=== PATIENT | female | born 1960 | race Caucasian/White ===

== ENCOUNTER 2023-11-24 14:45 | Outpatient (AMB) | payer OTHER, SELFPAY ==
--- NOTE | 2023-11-24 15:24 | MHC.OFFVIS ---
Intake Vital Signs 11/24/23 15:28 Height 5 ft 1 in Weight 166 lb 4 oz BMI 31.4 BP 110/78 Blood Pressure Location Lt brachial Position Sitting Pulse 53 Pulse Source Pulse Oximeter Pulse Oximetry (%) 98 Oxygen Delivery Method Room Air Intake Visit Reasons: ENP-Memory concerns-Confirmed Intake Note: Patient presents forgetting conversations, phone numbers, instructions, names of people, what to do, where she is going Allergies cephalexin [From Keflex] Allergy (Intermediate, Verified 11/24/23 15:26) Hives amoxicillin Allergy (Mild, Verified 11/24/23 15:26) Pruritus Prednisone Allergy (Severe, Uncoded 11/22/23 09:41) Vomiting HPI HPI Comments History of Present Illness Details 63 y/o female patient presents for new in-person visit for memory loss. Pt reports she forgets a lot, it started many years ago and has been progressed. She forgets conversation she had the night before with her family, and forgets what she tried to do. She had many episodes of forgetting to turn off the stove, and stopped cooking. Pt has [employer], and gets help for house work and cooking. She frequently forgets to bring her dog in after walking. She lives alone, and her friend and daughter visit her regularly. She can takes care of bills, uses note and calendar, not missing bills. She lives alone but her friend visit her frequently. Pt's daughter comes and help her regularly. 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 She drives, but can get confused the directions. She has hx of sleep apnea, and tried different CPAP mask but not tolerated, she stopped using it. She was over 300 lb, and had gastric bypass, and lost about 140 lb. Pt has HTN and T2 DM. She has hx of brain aneurysm. She does not have any social or cognitive activities. She likes baking , but usually just watching TV all day. [facility] Surgical History History of endoscopy History of bunionectomy History of hernia repair History of gastric bypass Status post hammertoe correction Status post breast reduction S/P panniculectomy History of neck surgery History of hysterectomy History of foot surgery H/O colonoscopy Previous back surgery Family History (Updated 11/24/23 @ 15:35 by Virginia Crawley CMA) Maternal Aunt Cancer Father Aortic aneurysm Mother Asthma Diabetes Heart disease Brother Cancer of lung Social History Alcohol intake: never Patient Tobacco Use Status: Never used Tobacco Review of Systems Const All systems reviewed & are unremarkable except as noted in HPI and below Physical Exam Vital Signs: Last Vital Signs Pulse 53 11/24/23 15:28 BP 110/78 11/24/23 15:28 Pulse Ox 98 11/24/23 15:28 Oxygen Delivery Method Room Air 11/24/23 15:28 BMI result Body Mass Index 31.4 Const General: cooperative Nutritional Appearance: obese Orientation/consciousness: patient oriented x3 Resp Effort & Inspection: normal respiratory effort and able to speak in complete sentences Neuro General: patient oriented x3 and gait normal Cranial nerves: Yes CN's II-XII intact bilaterally Cognition (Neuro): normal cognition Motor exam (neuro): 5/5 motor strength present throughout Psych Appearance: grossly normal Mental Status: mental status grossly normal Speech and movement: Normal speech and movement present Affect: normal affect Attitude: cooperative Orientation What is the (year) (season) (date) (day) (month)?: year, season, date, day and month Where are we (state) (county) (town or city) (hospital) (floor)?: state, county, town or city, hospital/clinic and floor Registration Name of 3 unrelated objects clearly and slowly, then ask patient to repeat all 3 of them. (1st repeat determines score. Make sure they can repeat all three): object 1, object 2 and object 3 Attention & Calculation (CHOOSE ONE) Spell WORLD backwards (DLROW): 5 letters Recall Ask patient to repeat the 3 items from question #3.: object 1, object 2 and object 3 Language Show patient a wristwatch & ask what it is. Repeat for pencil.: watch and pencil Ask the patient to repeat the phrase 'No ifs, ands, or buts' after you.: incorrect Ask the patient to 'take a piece of paper with their right hand' 'fold paper in half' 'place paper on floor': take paper in right hand, fold paper in half and place paper on floor Print the sentence 'CLOSE YOUR EYES' on a piece. If patient actually closes eyes then score.: followed written direction Give patient a blank piece of paper & ask to write a sentence. Score if it contains a noun & verb.: sentence contains subject and verb Ask patient to copy figure of intersecting pentagons exactly. Score if all 10 angles & 2 intersects are included.: all 10 angles present & 2 are intersected Score Score: 29 Assessment & Plan Assessment & Plan (1) Memory loss: Code(s): R41.3 - Other amnesia Plan Pt did well for MMSE today, . Will check labs for reversible causes of memory loss. Pt declined repeat sleep study at this time. Will refer for neuropsychiatry for evaluation. Advised patient to increase daily physical, cognitive and social activities. Orders: Orders Vitamin B12 and Folate 11/24/23 R41.3 - Other amnesia Vitamin D 25-OH (D2 and D3) 11/24/23 R41.3 - Other amnesia TSH reflex Free T4 11/24/23 R41.3 - Other amnesia Comprehensive Met. Panel 11/24/23 R41.3 - Other amnesia Complete Blood Count Auto Diff 11/24/23 R41.3 - Other amnesia Referrals Neuropsychiatry Referral R41.3 - Other amnesia Coding Level of Care Code New Pt Level 4 (47017) Diagnoses Memory loss R41.3
[2023-11-24 15:28] VITALS: BP 110/78; PULSE 53; O2SAT 98; BMI 31.4
== END 2023-11-24 15:59 | disposition home or self-care (01) ==
PROVIDERS: PCP Physician Assistant Medical; Visit Provider Nurse Practitioner Family
DX: R41.3 Other amnesia (principal)
CPT/HCPCS: 99204

== ENCOUNTER → 2023-11-24 14:45 | Outpatient (BNVA) | payer OTHER, SELFPAY | PROVIDERS: PCP Physician Assistant Medical; Visit Provider Nurse Practitioner Family | DX: R41.3 Other amnesia (principal) | CPT/HCPCS: 99202 ==